=== PATIENT | male | born 1965 | race Caucasian/White ===

== ENCOUNTER → 2018-03-25 14:33 | Outpatient (CLI) | payer OTHER, SELFPAY ==
[2018-03-25 15:02] LABS: Add Manual Diff / Slide Review NO; Basophils Absolute Auto 100 /uL (0-100); Basophils Percent Auto 1.9 % (0-2); Eosinophils Absolute Auto 100 /uL (0-450); Eosinophils Percent Auto 1.2 % (2-4); Hematocrit 44.6 % (41-53); Hemoglobin 15.2 g/dL (13.5-17.5); Lymphocytes Absolute Auto 1800 /uL (1100-4500); Lymphocytes Percent Auto 23.4 % (25-40); Mean Corpuscular HGB Conc 34.1 % (30-36); Mean Corpuscular Hemoglobin 30.4 PG (26-34); Monocytes Absolute Auto 900 /uL (0-900); Neutrophils Absolute Auto 4700 /uL (1500-7000); Neutrophils Percent Auto 61.5 % (50-75); Platelet Count 275 X10^3/uL (150-400); Red Blood Cell Count 5.01 X10^6/uL (4.5-5.9); Red Cell Distribution Width 12.8 % (11.6-14.8); White Blood Cell Count 7.6 X10^3/uL (4.5-11.0)
[2018-03-25 15:37] LABS: Alanine Aminotransferase 61 IU/L (21-72); Albumin 4.5 g/dL (3.5-5.0); Albumin Globulin Ratio 1.6 (1.0-2.8); Alkaline Phosphatase 75 U/L (38-126); Aspartate Aminotransferase 31 IU/L (17-59); BUN Creatinine Ratio 14.4 (6-22); Bilirubin Total 0.7 mg/dL (0.2-1.3); Blood Urea Nitrogen 13 mg/dL (9-20); Calcium 9.5 mg/dL (8.4-10.2); Carbon Dioxide 29 mmol/L (22-32); Chloride 101 mmol/L (98-107); Cholesterol 255 mg/dL (140-199); Estimated Glomerular Filt Rate > 60.0 mL/min (>60); Globulin 2.8 g/dL (1.7-4.1); Glucose 93 mg/dL (70-100); HDL Cholesterol 39 mg/dL (40-60); HEMOLYSIS < 15 (0-50); LDL Cholesterol Calculated 175 mg/dL (<100); Potassium 4.3 mmol/L (3.4-5.1); Sodium 139 mmol/L (137-145); Total Protein 7.3 g/dL (6.3-8.2); Triglycerides 207 mg/dL (35-150)
[2018-03-25 16:33] LABS: Thyroid Stimulating Hormone 1.72 uIU/mL (0.47-4.68)
[2018-03-25 16:39] LABS: Creatinine Urine Random 119.3 mg/dL
[2018-03-25 16:44] LABS: Microalbumi Creatinin Ratio Ur 9.2 ug/mg CR (<30); Microalbumin Urine Random 1.1 mg/dL (0-1.6)
== END ==
PROVIDERS: PCP Family Medicine; Visit Provider Family Medicine
DX: E78.2 Mixed hyperlipidemia (principal); G47.30 Sleep apnea, unspecified; I10 Essential (primary) hypertension; Z13.0 Encounter for screening for diseases of the blood and blood-forming organs and certain disorders involving the immune mechanism; Z13.1 Encounter for screening for diabetes mellitus
CPT/HCPCS: 36415; 80053; 80061; 82043; 82570; 84153; 84443; 85025

== ENCOUNTER → 2018-08-19 10:53 | Outpatient (CLI) | payer OTHER, SELFPAY ==
[2018-08-19 11:55] LABS: Cholesterol 197 mg/dL (140-199); HDL Cholesterol 43 mg/dL (40-60); LDL Cholesterol Calculated 120 mg/dL (<100); Triglycerides 171 mg/dL (35-150)
== END ==
PROVIDERS: PCP Family Medicine; Visit Provider Family Medicine
DX: E78.2 Mixed hyperlipidemia (principal)
CPT/HCPCS: 36415; 80061

== ENCOUNTER → 2018-09-12 09:07 | Outpatient (CLI) | payer OTHER, SELFPAY ==
[2018-09-12 10:30] LABS: BUN Creatinine Ratio 13.3 (6-22); Blood Urea Nitrogen 12 mg/dL (9-20); Calcium 9.2 mg/dL (8.4-10.2); Carbon Dioxide 30 mmol/L (22-32); Chloride 101 mmol/L (98-107); Estimated Glomerular Filt Rate > 60.0 mL/min (>60); Glucose 97 mg/dL (70-100); HEMOLYSIS < 15 (0-50); Potassium 3.7 mmol/L (3.4-5.1); Sodium 140 mmol/L (137-145)
== END ==
PROVIDERS: PCP Family Medicine; Visit Provider Family Medicine
DX: I10 Essential (primary) hypertension (principal)
CPT/HCPCS: 36415; 80048

== ENCOUNTER → 2018-09-13 10:31 | Outpatient (CLI) | payer OTHER, SELFPAY ==
--- NOTE | 2018-09-13 10:33 | DI.RAD.S_ITS ---
PROCEDURE: XR CHEST 2V INDICATIONS: Pleural thickening TECHNIQUE: 2 views of the chest were acquired. COMPARISON: None. FINDINGS: Surgical changes and devices: None Lungs and pleura: Lungs are clear. No pleural effusions or pneumothorax. Mediastinum: Mediastinal contours are normal. Heart size is normal. Bones and chest wall: No suspicious bony abnormalities. Soft tissues appear unremarkable. IMPRESSION: No acute disease Dictated by: Rob Zhong M.D. on 09/13/2018 at 13:57 Approved by: Rob Zhong M.D. on 09/13/2018 at 13:58
== END ==
PROVIDERS: PCP Family Medicine; Visit Provider Family Medicine
DX: R05 Cough (principal); J92.9 Pleural plaque without asbestos
CPT/HCPCS: 71046

== ENCOUNTER 2019-01-17 22:13 | Inpatient (IN) | payer OTHER, SELFPAY ==
[2019-01-17 22:18] VITALS: BP 149/93; PULSE 89; RESP 21; O2SAT 96; BMI 34.2
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
[2019-01-17 22:32] VITALS: BP 150/90; PULSE 98; RESP 24; O2SAT 98
[2019-01-17 22:44] LABS: Add Manual Diff / Slide Review NO; Basophils Absolute Auto 100 /uL (0-100); Basophils Percent Auto 0.8 % (0-2); Eosinophils Absolute Auto 200 /uL (0-450); Eosinophils Percent Auto 1.7 % (2-4); Hematocrit 41.4 % (41-53); Hemoglobin 14.1 g/dL (13.5-17.5); Lymphocytes Absolute Auto 4100 /uL (1100-4500); Lymphocytes Percent Auto 28.3 % (25-40); Mean Corpuscular Hemoglobin 30.4 PG (26-34); Mean Corpuscular Volume 89.4 fL (80-100); Monocytes Absolute Auto 1400 /uL (0-900); Monocytes Percent Auto 9.7 % (3-14); Neutrophils Absolute Auto 8600 /uL (1500-7000); Neutrophils Percent Auto 59.5 % (50-75); Platelet Count 314 X10^3/uL (150-400); Red Blood Cell Count 4.63 X10^6/uL (4.5-5.9); Red Cell Distribution Width 12.8 % (11.6-14.8); White Blood Cell Count 14.5 X10^3/uL (4.5-11.0)
[2019-01-17 22:55] LABS: Prothrombin Time 11.6 SECONDS (10.1-12.7)
[2019-01-17 22:57] LABS: PTT Partial Thromboplastin Tim 29 SECONDS (26.4-36.2)
[2019-01-17 22:59] LABS: Alanine Aminotransferase 37 IU/L (<50); Albumin 4.3 g/dL (3.5-5.0); Albumin Globulin Ratio 1.6 (1.0-2.8); Alkaline Phosphatase 73 U/L (38-126); Aspartate Aminotransferase 31 IU/L (17-59); BUN Creatinine Ratio 13.6 (6-22); Bilirubin Total 0.5 mg/dL (0.2-1.3); Blood Urea Nitrogen 15 mg/dL (9-20); Calcium 9.3 mg/dL (8.4-10.2); Carbon Dioxide 30 mmol/L (22-32); Chloride 101 mmol/L (98-107); Estimated Glomerular Filt Rate > 60.0 mL/min (>60); Globulin 2.7 g/dL (1.7-4.1); Glucose 143 mg/dL (70-100); HEMOLYSIS < 15 (0-50); Lipase 73 U/L (23-300); Potassium 3.2 mmol/L (3.4-5.1); Sodium 139 mmol/L (137-145)
[2019-01-17] MEDS: ONDANSETRON 4 MG/2 ML INJ IV (23:00)
[2019-01-17] MEDS: fentaNYL 100 MCG/2 ML INJ 50 MCG IV (23:01)
[2019-01-17 23:06] VITALS: BP 125/63; PULSE 96; RESP 18; O2SAT 96
[2019-01-17 23:23] VITALS: TEMP 36.7
[2019-01-17] MEDS: MORPHINE 4 MG/ML INJ IV (23:32)
[2019-01-17 23:42] LABS: Bacteria Urine None Seen
[2019-01-17 23:44] LABS: Appearance Urine UA CLEAR; Bilirubin Urine UA NEGATIVE (NEGATIVE); Color Urine UA YELLOW; Glucose Urine UA NEGATIVE (Negative); Ketones Urine UA NEGATIVE (NEGATIVE); Leukocyte Esterase Urine UA NEGATIVE (NEGATIVE); Nitrite Urine UA NEGATIVE (Negative); Occult Blood Urine UA 2+ (Negative); Protein Urine UA NEGATIVE (Negative); Specific Gravity Urine UA <=1.005 (1.000-1.035); Urobilinogen Urine UA 0.2 E.U./dL (0.2); pH Urine UA 6.5 (4.5-8.0)
[2019-01-17 23:45] LABS: Ethanol (ETOH) < 10 mg/dL
[2019-01-17 23:52] LABS: UR Morphine/Opiate cutoff 300 Negative (Negative); Ur Creatinine 50 (Normal); Ur Specific Gravity 1.015 (Normal); Urine Amphetamines Negative (Negative); Urine Barbiturates Negative (Negative); Urine Benzodiazepines Negative (Negative); Urine Cocaine Negative (Negative); Urine MDMA Negative (Negative); Urine Methadone Negative (Negative); Urine Methamphetamines Negative (Negative); Urine Phencyclidine Negative (Negative); Urine Tetrahydrocannabinol Negative (Negative); Urine Tricyclic Antidepressant Negative (Negative); Urine pH 5 (Normal)
[2019-01-17 23:53] LABS: Urine Oxycodone Negative (Negative)
[2019-01-18] VITALS (7 sets, daily range): BP systolic 111–151; BP diastolic 67–83; PULSE 72–99; RESP 16–19; TEMP 36.1–37.3; O2SAT 94–98; BMI 38.7
[2019-01-18 00:21] LABS: Culture Indicated Urine Cult Not Indicated; RBC Urine 1-5/HPF (0-5/HPF); WBC Urine 0-1/HPF (0-5/HPF)
[2019-01-18] MEDS: HYDROMORPHONE 0.5 MG INJ 1 MG IV (00:23)
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
[2019-01-18] MEDS: LACTATED RINGERS 1,000 ML 100 ML IV ×3 (01:41→21:45)
[2019-01-18] MEDS: HYDROMORPHONE 2 MG INJ IV (01:42)
[2019-01-18 04:45] LABS: Add Manual Diff / Slide Review NO; Basophils Absolute Auto 0 /uL (0-100); Basophils Percent Auto 0.3 % (0-2); Eosinophils Absolute Auto 0 /uL (0-450); Hematocrit 42.3 % (41-53); Hemoglobin 14.1 g/dL (13.5-17.5); Lymphocytes Absolute Auto 1200 /uL (1100-4500); Lymphocytes Percent Auto 6.5 % (25-40); Mean Corpuscular HGB Conc 33.2 % (30-36); Mean Corpuscular Volume 90.2 fL (80-100); Monocytes Absolute Auto 1400 /uL (0-900); Monocytes Percent Auto 7.8 % (3-14); Neutrophils Absolute Auto 15200 /uL (1500-7000); Neutrophils Percent Auto 85.4 % (50-75); Platelet Count 324 X10^3/uL (150-400); White Blood Cell Count 17.8 X10^3/uL (4.5-11.0)
[2019-01-18 04:53] LABS: BUN Creatinine Ratio 14.4 (6-22); Blood Urea Nitrogen 13 mg/dL (9-20); Calcium 8.9 mg/dL (8.4-10.2); Carbon Dioxide 27 mmol/L (22-32); Chloride 101 mmol/L (98-107); Estimated Glomerular Filt Rate > 60.0 mL/min (>60); Glucose 199 mg/dL (70-100); HEMOLYSIS < 15 (0-50); Potassium 4.2 mmol/L (3.4-5.1); Sodium 139 mmol/L (137-145)
[2019-01-18] MEDS: ACETAMINOPHEN 325 MG TABLET 650 MG PO ×3 (06:33→17:54)
[2019-01-18] MEDS: KETOROLAC 30 MG/ML VIAL IV ×3 (06:33→21:45)
[2019-01-18] MEDS: ONDANSETRON 4 MG/2 ML INJ IV (07:39)
--- NOTE | 2019-01-18 09:06 | RT ---
PT HAS A HX OF MAGO, AND STATES THAT HE USES A HOME CPAP UNIT EVERY NIGHT. HIS UNIT IS CURRENTLY NOT HERE. HE STATES THAT HE WILL HAVE HIS FAMILY MEMBER BRING THE UNIT IN IF HE STAYS AN ADDITIONAL NIGHT IN THE HOSPITAL. BREATH SOUNDS ARE CLEAR. O2 SAT ON RA NOTED AT 98%. RR = 16. PT IS USING I.S. AT BEDSIDE.
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
[2019-01-18] MEDS: SCOPOLAMINE 1 PATCH TOP (12:31)
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
--- NOTE | 2019-01-18 18:07 | PC.NURSE ---
Addendum entered by Riya Garber R.N. 01/18/19 21:33: Pt has dozed in chair and moves to put self into bed. Staff assist pt and replaced BL calf scd's. Pt has set up own cpap and this is in place. Ice to left thoracic region as well as pillow to splint/support. Encouraged to call for needs. Original Note: Pt up in chair @ beginning of shift. Requests assistance with ambulation in hallway. Denies dizziness when up and ambulatory. Steady gait. Admits to left sided dull pain 07/22. Declines offer for ordered narcotics stating they add to nausea/dizziness. Currently denies nausea. Taking clear liquids well. Slight ankle edema BL. Denies difficulty with urination. Urinal use in bathroom. IV fluids infusing without difficulty to left hand iv site.
[2019-01-19] VITALS (8 sets, daily range): BP systolic 115–143; BP diastolic 54–86; PULSE 59–75; RESP 16–17; TEMP 36.2–36.9; O2SAT 93–98
[2019-01-19] MEDS: ACETAMINOPHEN 325 MG TABLET 650 MG PO ×4 (00:12→18:09)
[2019-01-19] MEDS: KETOROLAC 30 MG/ML VIAL IV ×3 (06:05→21:55)
[2019-01-19] MEDS: LACTATED RINGERS 1,000 ML 100 ML IV ×2 (08:47→20:09)
[2019-01-19] MEDS: DOCUSATE 100 MG CAPSULE PO (08:49)
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
[2019-01-19 13:10] LABS: Add Manual Diff / Slide Review NO; Basophils Absolute Auto 100 /uL (0-100); Eosinophils Absolute Auto 100 /uL (0-450); Eosinophils Percent Auto 1.3 % (2-4); Hematocrit 38.9 % (41-53); Hemoglobin 13.1 g/dL (13.5-17.5); Lymphocytes Absolute Auto 1500 /uL (1100-4500); Lymphocytes Percent Auto 13.5 % (25-40); Mean Corpuscular HGB Conc 33.7 % (30-36); Mean Corpuscular Hemoglobin 30.4 PG (26-34); Mean Corpuscular Volume 90.2 fL (80-100); Monocytes Absolute Auto 1300 /uL (0-900); Monocytes Percent Auto 11.4 % (3-14); Neutrophils Absolute Auto 8000 /uL (1500-7000); Neutrophils Percent Auto 72.8 % (50-75); Platelet Count 256 X10^3/uL (150-400); Red Blood Cell Count 4.32 X10^6/uL (4.5-5.9); Red Cell Distribution Width 13.1 % (11.6-14.8); White Blood Cell Count 10.9 X10^3/uL (4.5-11.0)
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
--- NOTE | 2019-01-19 15:42 | PC.NURSE ---
Pain: SMy stomach hurts worse today then it did yesterday, do I still have the dilaudid if I need it? Reviewed pain med regime, pt didn't want anything for pain now except the toradol and tylenol he has scheduled. He will let us know if he needs it. Also thought hunger maybe part of the cause of his pain and he was wondering about food. MD Hicks is aware of both, see new orders. Pt did eat and he isn't sure if the pain is better or not. Still wanted nothing more for pain. He is gone at the moment for a CT scan of the abd. Spouse called and requesting a note for work so she can stay with him per PT recommendations. MD aware and assisting her in this. Hopefully will feel better. Cont w/poc.
[2019-01-19] MEDS: MORPHINE 4 MG/ML INJ IV ×2 (19:27→23:58)
[2019-01-20 05:54] VITALS: BP 128/78; PULSE 70; RESP 18; TEMP 36.3; O2SAT 98
[2019-01-20] MEDS: KETOROLAC 30 MG/ML VIAL IV (06:09)
[2019-01-20] MEDS: LACTATED RINGERS 1,000 ML 100 ML IV (06:10)
[2019-01-20 07:10] VITALS: PULSE 60; O2SAT 95
[2019-01-20 08:00] VITALS: BP 116/76; PULSE 62; RESP 16; TEMP 36.6; O2SAT 96
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
[2019-01-20] MEDS: ACETAMINOPHEN 325 MG TABLET 650 MG PO (12:34)
--- NOTE | 2019-01-20 13:36 | PC.NURSE ---
Day shift: Pt left unit via WC with ZAIDA Ríos to private car driven by Pt's spouse. paperwork signed and all questions answered. Pt has MD scripts as well as all personal belongings. Pt in good spirits upon discharge.
--- NOTE | 2019-01-20 14:03 | CM.DPC ---
DCP Discharge Home Per Surgeon, pt medically stable to d/c home today with no identified barriers to discharge. Per RN, pt to d/c home via spouse and no concerns at this time. Plan: Patient to d/c home today via spouse POV and no SW needs at this time. OMAR Santoyo
== END 2019-01-20 13:37 | disposition home or self-care (01) | DRG 645 ==
LOC: ED 23:57 → AC 01-18 04:20
PROVIDERS: Specialist; Admitting Provider Surgery; Emergency Provider Emergency Medicine; Family Provider Family Medicine; PCP Family Medicine; Visit Provider Surgery
DX: S37.818A Other injury of adrenal gland, initial encounter (principal); E66.9 Obesity, unspecified; Z68.38 Body mass index [BMI] 38.0-38.9, adult; E78.5 Hyperlipidemia, unspecified; I10 Essential (primary) hypertension; G47.33 Obstructive sleep apnea (adult) (pediatric); V43.52XA Car driver injured in collision with other type car in traffic accident, initial encounter; Y92.410 Unspecified street and highway as the place of occurrence of the external cause
CPT/HCPCS: 36415; 70450; 71045; 71260; 72125; 72170; 74177; 80048; 80053; 80305; 80320; 81001; 82962; 83690; 85025; 85610; 85730; 86850; 86900; 86901; 94762; 96374; 96375; 97161; 97530; 99222; 99231; 99232; 99238; 99283; 99284; J1170; J1885; J2270; J2405; J3010; Q9967

== ENCOUNTER → 2019-01-23 08:17 | Outpatient (CLI) | payer OTHER, SELFPAY ==
[2019-01-18 01:13] VITALS: BMI 38.7
[2019-01-23 09:28] LABS: Add Manual Diff / Slide Review NO; Basophils Absolute Auto 100 /uL (0-100); Basophils Percent Auto 0.9 % (0-2); Eosinophils Absolute Auto 200 /uL (0-450); Hematocrit 40.3 % (41-53); Lymphocytes Absolute Auto 1800 /uL (1100-4500); Lymphocytes Percent Auto 25.6 % (25-40); Mean Corpuscular HGB Conc 34.8 % (30-36); Mean Corpuscular Hemoglobin 30.8 PG (26-34); Mean Corpuscular Volume 88.7 fL (80-100); Monocytes Absolute Auto 700 /uL (0-900); Monocytes Percent Auto 9.8 % (3-14); Neutrophils Absolute Auto 4200 /uL (1500-7000); Neutrophils Percent Auto 60.7 % (50-75); Platelet Count 345 X10^3/uL (150-400); Red Blood Cell Count 4.54 X10^6/uL (4.5-5.9); Red Cell Distribution Width 12.6 % (11.6-14.8); White Blood Cell Count 6.9 X10^3/uL (4.5-11.0)
[2019-01-23 09:53] LABS: BUN Creatinine Ratio 15.6 (6-22); Blood Urea Nitrogen 14 mg/dL (9-20); Calcium 9.4 mg/dL (8.4-10.2); Carbon Dioxide 29 mmol/L (22-32); Chloride 102 mmol/L (98-107); Estimated Glomerular Filt Rate > 60.0 mL/min (>60); Glucose 113 mg/dL (70-100); HEMOLYSIS < 15 (0-50); Potassium 4.2 mmol/L (3.4-5.1); Sodium 140 mmol/L (137-145)
== END ==
PROVIDERS: PCP Family Medicine; Visit Provider Family Medicine
DX: E27.49 Other adrenocortical insufficiency (principal); I10 Essential (primary) hypertension; R42 Dizziness and giddiness; V89.2XXA Person injured in unspecified motor-vehicle accident, traffic, initial encounter
CPT/HCPCS: 36415; 80048; 85025

== ENCOUNTER → 2019-01-23 08:32 | Outpatient (CLI) | payer OTHER, SELFPAY ==
[2019-01-18 01:13] VITALS: BMI 38.7
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
== END ==
PROVIDERS: PCP Family Medicine; Visit Provider Family Medicine
DX: E27.49 Other adrenocortical insufficiency (principal); K76.0 Fatty (change of) liver, not elsewhere classified; Z90.49 Acquired absence of other specified parts of digestive tract
CPT/HCPCS: 74150

== ENCOUNTER → 2019-01-29 07:50 | Outpatient (CLI) | payer OTHER, SELFPAY ==
[2019-01-18 01:13] VITALS: BMI 38.7
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
== END ==
PROVIDERS: PCP Family Medicine; Visit Provider Family Medicine
DX: R42 Dizziness and giddiness (principal); E27.49 Other adrenocortical insufficiency; I10 Essential (primary) hypertension
CPT/HCPCS: 36415; 70553; 85025

== ENCOUNTER → 2019-01-29 08:44 | Outpatient (CLI) | payer OTHER, SELFPAY ==
[2019-01-18 01:13] VITALS: BMI 38.7
[2019-01-29 09:26] LABS: Add Manual Diff / Slide Review NO; Basophils Absolute Auto 0 /uL (0-100); Basophils Percent Auto 0.3 % (0-2); Eosinophils Absolute Auto 0 /uL (0-450); Eosinophils Percent Auto 0.1 % (2-4); Hematocrit 42.9 % (41-53); Hemoglobin 14.6 g/dL (13.5-17.5); Lymphocytes Absolute Auto 2200 /uL (1100-4500); Mean Corpuscular HGB Conc 34.1 % (30-36); Mean Corpuscular Hemoglobin 30.6 PG (26-34); Mean Corpuscular Volume 89.8 fL (80-100); Monocytes Absolute Auto 1200 /uL (0-900); Neutrophils Absolute Auto 11300 /uL (1500-7000); Neutrophils Percent Auto 76.6 % (50-75); Platelet Count 402 X10^3/uL (150-400); Red Blood Cell Count 4.78 X10^6/uL (4.5-5.9); Red Cell Distribution Width 13.2 % (11.6-14.8); White Blood Cell Count 14.7 X10^3/uL (4.5-11.0)
== END ==
PROVIDERS: PCP Family Medicine; Visit Provider Family Medicine
DX: E27.49 Other adrenocortical insufficiency (principal); I10 Essential (primary) hypertension; V89.2XXA Person injured in unspecified motor-vehicle accident, traffic, initial encounter
CPT/HCPCS: 36415; 85025

== ENCOUNTER → 2019-02-14 15:51 | Outpatient (CLI) | payer OTHER, SELFPAY ==
[2019-01-18 01:13] VITALS: BMI 38.7
[2019-02-14 16:07] LABS: Add Manual Diff / Slide Review NO; Basophils Absolute Auto 100 /uL (0-100); Basophils Percent Auto 1.3 % (0-2); Eosinophils Absolute Auto 200 /uL (0-450); Eosinophils Percent Auto 2.4 % (2-4); Hematocrit 40.5 % (41-53); Hemoglobin 14.2 g/dL (13.5-17.5); Lymphocytes Absolute Auto 2200 /uL (1100-4500); Lymphocytes Percent Auto 25.1 % (25-40); Mean Corpuscular HGB Conc 35.1 % (30-36); Mean Corpuscular Hemoglobin 31.2 PG (26-34); Monocytes Absolute Auto 1200 /uL (0-900); Monocytes Percent Auto 13.2 % (3-14); Neutrophils Absolute Auto 5100 /uL (1500-7000); Platelet Count 283 X10^3/uL (150-400); Red Blood Cell Count 4.56 X10^6/uL (4.5-5.9); White Blood Cell Count 8.8 X10^3/uL (4.5-11.0)
== END ==
PROVIDERS: PCP Family Medicine; Visit Provider Family Medicine
DX: E27.49 Other adrenocortical insufficiency (principal)
CPT/HCPCS: 36415; 85025

== ENCOUNTER → 2019-02-20 09:20 | Outpatient (CLI) | payer OTHER, SELFPAY ==
[2019-01-18 01:13] VITALS: BMI 38.7
--- NOTE | 2019-02-20 09:24 | DI.CT.S_ITS ---
PROCEDURE: CT ABDOMEN WO CON INDICATIONS: Adrenal hematoma TECHNIQUE: After the administration of oral contrast, 5 mm thick sections acquired from the diaphragms to the iliac crests. 5 mm coronal and sagittal reformats were then performed. For radiation dose reduction, the following was used: automated exposure control, adjustment of mA and/or kV according to patient size. COMPARISON: [facility], CT, CT ABDOMEN PELVIS W CON, 01/19/2019, 15:19. [facility], CT, CT ABDOMEN WO CON, 01/23/2019, 9:03. FINDINGS: Image quality: Excellent. Lung bases: Lung bases are clear. Heart size is normal. Solid organs: Medial and lateral limb left adrenal nodules have both decreased in size. The medial nodule measures approximately 1.2 cm transversely, previously 1.9 cm. The lateral nodule measures about 1.4 cm in greatest diameter, previously at least 2.1 cm. No significant surrounding fat stranding. Liver is normal in size. The ovoid hypodensity centrally in the right liver dome. Gallbladder is surgically absent. Pancreas is normal in contours. Spleen is normal in size. Both kidneys are normal in size, without hydronephrosis or nephrolithiasis. Peritoneum and bowel: Bowel loops demonstrate normal wall thickness and caliber. Normal appendix. No free fluid or air. Nodes and vessels: No retroperitoneal or mesenteric adenopathy by size criteria. Aorta and inferior vena cava are normal in size. Bones: No suspicious bony lesions. No vertebral body compression fractures. Miscellaneous: No ventral hernias. IMPRESSION: 1. Decreased size of 2 left adrenal nodules and resolution of nilda-nodular inflammation. 2. Cholecystectomy. Dictated by: Rosalee Son M.D. on 02/20/2019 at 9:46 Approved by: Rosalee Son M.D. on 02/20/2019 at 9:55
== END ==
PROVIDERS: PCP Family Medicine; Visit Provider Family Medicine
DX: E27.8 Other specified disorders of adrenal gland (principal); E27.49 Other adrenocortical insufficiency; Z90.49 Acquired absence of other specified parts of digestive tract
CPT/HCPCS: 74150

== ENCOUNTER → 2019-03-21 07:57 | Outpatient (CLI) | payer OTHER, SELFPAY ==
[2019-01-18 01:13] VITALS: BMI 38.7
--- NOTE | 2019-03-21 08:28 | DI.CT.S_ITS ---
PROCEDURE: CT ABDOMEN WO CON INDICATIONS: Adrenal hemorrhage TECHNIQUE: After the administration of oral contrast, 5 mm thick sections acquired from the diaphragms to the iliac crests. 5 mm coronal and sagittal reformats were then performed. For radiation dose reduction, the following was used: automated exposure control, adjustment of mA and/or kV according to patient size. COMPARISON: [facility], CT, CT HEAD/BRAIN WO CON, 01/17/2019, 22:32. [facility], CT, CT CHEST ABD PEL W CON, 01/17/2019, 22:32. [facility], CT, CT ABDOMEN WO CON, 02/20/2019, 9:24. FINDINGS: Image quality: Excellent. Lung bases: Lung bases are clear. Heart size is normal. Solid organs: Liver is normal in size. Gallbladder is surgically absent.. Pancreas is normal in contours. Spleen is normal in size. Resolution of left adrenal hemorrhage. Tiny residual left adrenal nodule. Both kidneys are normal in size, without hydronephrosis or nephrolithiasis. Peritoneum and bowel: Bowel loops demonstrate normal wall thickness and caliber. No free fluid or air. Nodes and vessels: No retroperitoneal or mesenteric adenopathy by size criteria. Aorta and inferior vena cava are normal in size. Bones: No suspicious bony lesions. No vertebral body compression fractures. Miscellaneous: No ventral hernias. IMPRESSION: Resolution of left adrenal hematoma. Tiny left adrenal nodule. No further followup suggested. Dictated by: Michael Tirado M.D. on 03/21/2019 at 10:20 Approved by: Michael Tirado M.D. on 03/21/2019 at 10:33
== END ==
PROVIDERS: PCP Family Medicine; Referring Provider Family Medicine; Visit Provider Family Medicine
DX: E27.49 Other adrenocortical insufficiency (principal); Z90.49 Acquired absence of other specified parts of digestive tract
CPT/HCPCS: 74150

== ENCOUNTER → 2019-07-02 17:01 | Outpatient (CLI) | payer OTHER, SELFPAY ==
[2019-06-11 11:04] VITALS: BMI 38.7
--- NOTE | 2019-07-02 17:05 | DI.MRI.S_ITS ---
PROCEDURE: MR LUMBAR SPINE WO CON INDICATIONS: Back pain TECHNIQUE: Noncontrast sagittal T1 spin echo and T2 fast echo, sagittal STIR, axial T1 and T2 fast spin echo through the lumbar spine. In cases with scoliosis, additional coronal T2 fast spin echo may be performed. COMPARISON: None. FINDINGS: Image quality: Excellent. Alignment and Curvature: There is normal bony alignment. Bone Marrow: Marrow is of normal overall signal. No acute vertebral body compression fractures. Fatty metaplasia is seen of the sacrum. Spinal Cord: Conus medullaris terminates at the T12-L1 level. Visualized cord demonstrates normal signal and size. Paraspinous Soft Tissues: No paravertebral masses. T12-L1: Normal appearance. L1-L2: Normal appearance. L2-L3: Normal appearance. L3-L4: The disc height and disk signal are well-preserved. Mild disc bulge is seen, with a mild central disc protrusion. No neural foraminal narrowing is seen. Mild central canal narrowing is seen. L4-L5: The disc height and disk signal are well-preserved. Mild to moderate disc bulge is seen, with a mild central disc protrusion. Mild to moderate facet hypertrophy is seen. There is moderate bilateral neural foraminal narrowing seen, left worse than right. Moderate central canal narrowing is seen. L5-S1: The disc height and disk signal are well-preserved. Mild generalized disc bulge is seen. Mild facet joint hypertrophy is seen. No significant neural foraminal or central canal narrowing can be seen. IMPRESSION: Lower lumbar spine degenerative changes are seen, which are most prominent at the L4-L5 level, where there is moderate bilateral neural foraminal narrowing seen, left worse than right. Dictated by: Avinash Wadsworth M.D. on 07/02/2019 at 16:54 Approved by: Avinash Wadsworth M.D. on 07/02/2019 at 16:57
== END ==
PROVIDERS: PCP Family Medicine; Referring Provider Family Medicine; Visit Provider Family Medicine
DX: S39.92XA Unspecified injury of lower back, initial encounter (principal); M54.5 Low back pain; M47.816 Spondylosis without myelopathy or radiculopathy, lumbar region; M47.817 Spondylosis without myelopathy or radiculopathy, lumbosacral region; M48.061 Spinal stenosis, lumbar region without neurogenic claudication; X58.XXXA Exposure to other specified factors, initial encounter
CPT/HCPCS: 72148

== ENCOUNTER → 2019-11-06 09:39 | Outpatient (CLI) | payer OTHER, SELFPAY ==
[2019-06-11 11:04] VITALS: BMI 38.7
[2019-11-06 11:06] LABS: Add Manual Diff / Slide Review NO; Basophils Absolute Auto 100 /uL (0-100); Basophils Percent Auto 0.8 % (0-2); Eosinophils Absolute Auto 200 /uL (0-450); Eosinophils Percent Auto 2.2 % (2-4); Hematocrit 43.6 % (41-53); Lymphocytes Absolute Auto 2100 /uL (1100-4500); Lymphocytes Percent Auto 29.2 % (25-40); Mean Corpuscular HGB Conc 34.3 % (30-36); Mean Corpuscular Hemoglobin 31.1 PG (26-34); Mean Corpuscular Volume 90.5 fL (80-100); Monocytes Absolute Auto 800 /uL (0-900); Neutrophils Absolute Auto 4100 /uL (1500-7000); Neutrophils Percent Auto 56.8 % (50-75); Platelet Count 281 X10^3/uL (150-400); Red Blood Cell Count 4.82 X10^6/uL (4.5-5.9); Red Cell Distribution Width 12.8 % (11.6-14.8); White Blood Cell Count 7.2 X10^3/uL (4.5-11.0)
[2019-11-06 11:43] LABS: HEMOLYSIS < 15 (0-50)
[2019-11-06 11:49] LABS: Alanine Aminotransferase 39 IU/L (<50); Albumin 4.3 g/dL (3.5-5.0); Albumin Globulin Ratio 1.6 (1.0-2.8); Alkaline Phosphatase 81 U/L (38-126); Aspartate Aminotransferase 29 IU/L (17-59); BUN Creatinine Ratio 15.9 (6-22); Bilirubin Total 0.6 mg/dL (0.2-1.3); Blood Urea Nitrogen 14 mg/dL (9-20); Calcium 9.4 mg/dL (8.4-10.2); Carbon Dioxide 31 mmol/L (22-32); Chloride 102 mmol/L (98-107); Cholesterol 167 mg/dL (140-199); Estimated Glomerular Filt Rate > 60.0 mL/min (>60); Globulin 2.7 g/dL (1.7-4.1); Glucose 90 mg/dL (70-100); HDL Cholesterol 42 mg/dL (40-60); LDL Cholesterol Calculated 99 mg/dL (<100); Potassium 4.4 mmol/L (3.4-5.1); Sodium 142 mmol/L (137-145); Triglycerides 129 mg/dL (35-150)
== END ==
PROVIDERS: PCP Family Medicine; Referring Provider Family Medicine; Visit Provider Family Medicine
DX: E78.2 Mixed hyperlipidemia (principal)
CPT/HCPCS: 36415; 80053; 80061; 84153; 85025

== ENCOUNTER → 2019-11-11 15:04 | Outpatient (CLI) | payer OTHER, SELFPAY ==
[2019-06-11 11:04] VITALS: BMI 38.7
--- NOTE | 2019-11-11 15:05 | DI.RAD.S_ITS ---
PROCEDURE: XR SHOULDER LT MIN 2V INDICATIONS: pain TECHNIQUE: 3 views of the shoulder were acquired. COMPARISON: [facility], , SHOULDER MINIMUM 2VIEW RIGHT, 06/23/2016, 15:03. FINDINGS: Bones: No fractures or dislocations. No suspicious bony lesions. Visualized ribs appear intact. Mild joint narrowing with periarticular osteophyte formation. Soft tissues: No suspicious soft tissue calcifications. IMPRESSION: Mild acromioclavicular and glenohumeral joint degeneration. Dictated by: Alonso Tomas [facility] Interpreted: Julio Burks MD on 11/11/2019 at 15:20 Approved by: Julio Burks M.D. on 11/11/2019 at 17:18
== END ==
PROVIDERS: PCP Family Medicine; Referring Provider Family Medicine; Visit Provider Family Medicine
DX: M25.512 Pain in left shoulder (principal); M19.012 Primary osteoarthritis, left shoulder
CPT/HCPCS: 73030

== ENCOUNTER → 2019-12-07 10:11 | Outpatient (CLI) | payer OTHER, SELFPAY ==
[2019-06-11 11:04] VITALS: BMI 38.7
--- NOTE | 2019-12-07 10:12 | DI.MRI.S_ITS ---
PROCEDURE: MR SHOULDER LT WO CON INDICATIONS: pain in left shoulder TECHNIQUE: Noncontrast oblique coronal T2 fast spin echo with fat saturation, oblique sagittal T1 spin echo with fat saturation, axial T1 spin echo and T2 fast spin echo with fat saturation through the shoulder. Examination limited by technical factors. COMPARISON: [facility], CR, XR SHOULDER LT MIN 2V, 11/11/2019, 14:54. FINDINGS: Image quality: Excellent. Rotator cuff: There is a small, high-grade partial-thickness articular surface tear of the anterior supraspinatus tendon at the humeral insertion site. Low-grade partial-thickness intrasubstance tearing of the mid and posterior supraspinatus tendon at the humeral insertion site. Subscapularis, teres minor, and infraspinatus tendons are intact. No rotator cuff atrophy. Bones and bursae: No bone marrow contusions or fractures. Mild acromioclavicular joint degeneration. The acromion demonstrates conventional anatomy, without an os acromiale. Small amount of subacromial-subdeltoid or subcoracoid bursal fluid is present. Capsule and soft tissues: Diffuse degenerative tearing of the glenoid labrum. The long head of the biceps tendon demonstrates normal location and morphology. The rotator interval appears normal, without fibrosis. The coracohumeral ligament is normal in thickness. IMPRESSION: 1. Small high-grade articular surface tear of the anterior supraspinatus tendon. Low-grade partial-thickness tearing of the remainder of the supraspinatus tendon. 2. Acromioclavicular joint osteoarthritis. 3. Subacromial bursitis. 4. Degenerative glenoid labral tearing. Dictated by: Sarina Clemens M.D. on 12/08/2019 at 9:30 Approved by: Sarina Clemens M.D. on 12/08/2019 at 9:34
== END ==
PROVIDERS: PCP Family Medicine; Referring Provider Family Medicine; Visit Provider Family Medicine
DX: M25.512 Pain in left shoulder (principal); M75.112 Incomplete rotator cuff tear or rupture of left shoulder, not specified as traumatic; M19.012 Primary osteoarthritis, left shoulder; M75.52 Bursitis of left shoulder; S43.492A Other sprain of left shoulder joint, initial encounter
CPT/HCPCS: 73221

== ENCOUNTER → 2021-01-25 11:47 | Outpatient (CLI) | payer OTHER, SELFPAY ==
[2019-06-11 11:04] VITALS: BMI 38.7
[2021-01-25 12:21] LABS: Add Manual Diff / Slide Review NO; Basophils Absolute Auto 100 /uL (0-100); Basophils Percent Auto 0.9 % (0-2); Eosinophils Absolute Auto 200 /uL (0-450); Eosinophils Percent Auto 2.4 % (2-4); Hematocrit 42.9 % (41-53); Hemoglobin 14.6 g/dL (13.5-17.5); Lymphocytes Absolute Auto 2100 /uL (1100-4500); Lymphocytes Percent Auto 26.7 % (25-40); Mean Corpuscular Hemoglobin 30.8 PG (26-34); Mean Corpuscular Volume 90.8 fL (80-100); Monocytes Absolute Auto 900 /uL (0-900); Monocytes Percent Auto 11.7 % (3-14); Neutrophils Absolute Auto 4600 /uL (1500-7000); Neutrophils Percent Auto 58.3 % (50-75); Platelet Count 275 X10^3/uL (150-400); Red Blood Cell Count 4.73 X10^6/uL (4.5-5.9); Red Cell Distribution Width 13.5 % (11.6-14.8)
[2021-01-25 12:34] LABS: Alanine Aminotransferase 39 IU/L (<50); Albumin 4.4 g/dL (3.5-5.0); Albumin Globulin Ratio 1.8 (1.0-2.8); Alkaline Phosphatase 74 U/L (38-126); Aspartate Aminotransferase 27 IU/L (17-59); BUN Creatinine Ratio 13.5 (6-22); Bilirubin Total 0.7 mg/dL (0.2-1.3); Blood Urea Nitrogen 12 mg/dL (9-20); Calcium 9.5 mg/dL (8.4-10.2); Carbon Dioxide 30 mmol/L (22-32); Chloride 105 mmol/L (98-107); Cholesterol 180 mg/dL (140-199); Estimated Glomerular Filt Rate > 60.0 mL/min (>60); Globulin 2.5 g/dL (1.7-4.1); Glucose 100 mg/dL (70-100); HDL Cholesterol 43 mg/dL (40-60); HEMOLYSIS < 15 (0-50); LDL Cholesterol Calculated 109 mg/dL (<100); Potassium 4.3 mmol/L (3.4-5.1); Sodium 141 mmol/L (137-145); Total Protein 6.9 g/dL (6.3-8.2); Triglycerides 142 mg/dL (35-150)
[2021-01-25 15:27] LABS: Creatinine Urine Random 217.6 mg/dL
[2021-01-25 15:32] LABS: Microalbumi Creatinin Ratio Ur 10.5 ug/mg CR (<30); Microalbumin Urine Random 2.3 mg/dL (0-1.6)
== END ==
PROVIDERS: PCP Family Medicine; Referring Provider Family Medicine; Visit Provider Family Medicine
DX: E78.5 Hyperlipidemia, unspecified (principal); I10 Essential (primary) hypertension; R42 Dizziness and giddiness; Z20.822 Contact with and (suspected) exposure to COVID-19
CPT/HCPCS: 36415; 80053; 80061; 82043; 82570; 85025; 86769

== ENCOUNTER → 2021-10-25 11:03 | Outpatient (CLI) | payer OTHER, SELFPAY ==
[2021-10-18 11:06] VITALS: BMI 38.7
[2021-10-25 12:35] LABS: Alanine Aminotransferase 37 IU/L (<50); Albumin 4.2 g/dL (3.5-5.0); Albumin Globulin Ratio 1.5 (1.0-2.8); Alkaline Phosphatase 80 U/L (38-126); Aspartate Aminotransferase 25 IU/L (17-59); BUN Creatinine Ratio 14.3 (6-22); Bilirubin Total 0.7 mg/dL (0.2-1.3); Blood Urea Nitrogen 13 mg/dL (9-20); Calcium 9.1 mg/dL (8.4-10.2); Carbon Dioxide 29 mmol/L (22-32); Chloride 102 mmol/L (98-107); Cholesterol 176 mg/dL (140-199); Estimated Glomerular Filt Rate > 60 mL/min (>60); Globulin 2.8 g/dL (1.7-4.1); Glucose 96 mg/dL (70-100); HDL Cholesterol 39 mg/dL (40-60); HEMOLYSIS < 15 (0-50); LDL Cholesterol Calculated 115 mg/dL (<100); Potassium 4.4 mmol/L (3.4-5.1); Sodium 139 mmol/L (137-145); Triglycerides 112 mg/dL (35-150)
[2021-10-25 12:41] LABS: Creatinine Urine Random 256.5 mg/dL
[2021-10-25 12:44] LABS: Microalbumi Creatinin Ratio Ur 10.5 ug/mg CR (<30); Microalbumin Urine Random 2.7 mg/dL (0-1.6)
[2021-10-25 12:58] LABS: Prostate Specific Antigen Scrn 3.15 ng/mL (0.1-4.0)
== END ==
PROVIDERS: PCP Family Medicine; Referring Provider Family Medicine; Visit Provider Family Medicine
DX: E78.5 Hyperlipidemia, unspecified (principal); I10 Essential (primary) hypertension; Z12.5 Encounter for screening for malignant neoplasm of prostate
CPT/HCPCS: 36415; 80053; 80061; 82043; 82570; G0103

== ENCOUNTER → 2022-09-11 16:39 | Outpatient (CLI) | payer OTHER, SELFPAY ==
[2021-10-18 11:06] VITALS: BMI 38.7
--- NOTE | 2022-09-11 16:41 | DI.MRI.S_ITS ---
PROCEDURE: MR BRAIN (IAC) WWO CON INDICATIONS: eval vertigo TECHNIQUE: Noncontrast sagittal T1 spin echo, axial FLAIR, axial gradient echo, axial diffusion and ADC through the brain. Axial thin-slice 3D CISS, coronal TruFISP, axial T1 spin echo with fat saturation through the internal auditory canals. After the administration of contrast, thin slice axial and coronal T1 spin echo with fat saturation through the internal auditory canals, and axial and coronal and sagittal T1 spin echo with fat saturation through the brain. COMPARISON: [facility], MR, MR BRAIN (IAC) WWO CON, 01/29/2019, 8:03. FINDINGS: Image quality: Excellent. Cerebellopontine angles: No cerebellopontine angle masses. Inner ear structures appear normally formed. No suspicious enhancement in the internal auditory canal or along the course of the 7th cranial nerve. CSF spaces: Ventricles are normal in size and shape. No extra-axial fluid collections. Basal cisterns are patent. Brain: No intracranial bleeds or mass effects. Villar-white matter interface is intact. No abnormal intracranial enhancement. Diffusion weighted images demonstrate no acute ischemic insults. Brainstem appears normal. Normal intravascular flow voids are present. Skull and face: Calvarial marrow signal is normal. Orbits appear normal. Sinuses: Sinuses and mastoids are clear. IMPRESSION: 1. Negative evaluation of the internal auditory canals. 2. No acute process. No recent infarct. Dictated by: Sarina Clemens M.D. on 09/12/2022 at 11:37 Approved by: Sarina Clemens M.D. on 09/12/2022 at 11:39
== END ==
PROVIDERS: PCP Family Medicine; Referring Provider Registered Nurse Diabetes Educator; Visit Provider Registered Nurse Diabetes Educator
DX: R42 Dizziness and giddiness (principal)
CPT/HCPCS: 70553; A9579

== ENCOUNTER → 2022-09-21 11:25 | Outpatient (CLI) | payer OTHER, SELFPAY ==
[2021-10-18 11:06] VITALS: BMI 38.7
[2022-09-21 13:07] LABS: Add Manual Diff / Slide Review NO; Basophils Absolute Auto 100 /uL (0-100); Basophils Percent Auto 1.1 % (0-2); Eosinophils Absolute Auto 200 /uL (0-450); Eosinophils Percent Auto 3.5 % (2-4); Hematocrit 40.8 % (41-53); Hemoglobin 13.9 g/dL (13.5-17.5); Lymphocytes Absolute Auto 2100 /uL (1100-4500); Lymphocytes Percent Auto 30.3 % (25-40); Mean Corpuscular HGB Conc 34.2 % (30-36); Mean Corpuscular Hemoglobin 30.9 PG (26-34); Mean Corpuscular Volume 90.4 fL (80-100); Monocytes Absolute Auto 800 /uL (0-900); Monocytes Percent Auto 11.3 % (3-14); Neutrophils Absolute Auto 3700 /uL (1500-7000); Neutrophils Percent Auto 53.8 % (50-75); Platelet Count 291 X10^3/uL (150-400); Red Blood Cell Count 4.52 X10^6/uL (4.5-5.9); Red Cell Distribution Width 13.1 % (11.6-14.8); White Blood Cell Count 6.9 X10^3/uL (4.5-11.0)
[2022-09-21 13:50] LABS: Alanine Aminotransferase 38 IU/L (<50); Albumin Globulin Ratio 1.6 (1.0-2.8); Alkaline Phosphatase 81 U/L (38-126); Aspartate Aminotransferase 32 IU/L (17-59); BUN Creatinine Ratio 13.1 (6-22); Bilirubin Total 0.5 mg/dL (0.2-1.3); Blood Urea Nitrogen 11 mg/dL (9-20); Calcium 8.8 mg/dL (8.4-10.2); Carbon Dioxide 26 mmol/L (22-32); Chloride 103 mmol/L (98-107); Cholesterol 179 mg/dL (140-199); Estimated Glomerular Filt Rate > 60 mL/min (>60); Globulin 2.5 g/dL (1.7-4.1); Glucose 96 mg/dL (70-100); HDL Cholesterol 43 mg/dL (40-60); HEMOLYSIS < 15 (0-50); LDL Cholesterol Calculated 115 mg/dL (<100); Potassium 4.2 mmol/L (3.4-5.1); Sodium 137 mmol/L (137-145); Total Protein 6.5 g/dL (6.3-8.2); Triglycerides 107 mg/dL (35-150)
[2022-09-21 14:10] LABS: Prostate Specific Antigen Scrn 2.27 ng/mL (0.1-4.0)
== END ==
PROVIDERS: PCP Family Medicine; Referring Provider Family Medicine; Visit Provider Family Medicine
DX: E78.2 Mixed hyperlipidemia (principal); E78.5 Hyperlipidemia, unspecified; I10 Essential (primary) hypertension; Z12.5 Encounter for screening for malignant neoplasm of prostate
CPT/HCPCS: 36415; 80053; 80061; 85025; G0103

== ENCOUNTER → 2022-10-05 09:49 | Outpatient (CLI) | payer OTHER, SELFPAY ==
[2021-10-18 11:06] VITALS: BMI 38.7
== END ==
PROVIDERS: PCP Family Medicine; Referring Provider Family Medicine; Visit Provider Family Medicine
DX: R00.2 Palpitations (principal); R42 Dizziness and giddiness
CPT/HCPCS: 93246

== ENCOUNTER → 2023-07-31 09:56 | Outpatient (CLI) | payer OTHER, SELFPAY ==
[2021-10-18 11:06] VITALS: BMI 38.7
[2023-07-31 10:49] LABS: Add Manual Diff / Slide Review NO; Basophils Absolute Auto 100 /uL (0-100); Basophils Percent Auto 0.9 % (0-2); Eosinophils Absolute Auto 200 /uL (0-450); Hematocrit 43.2 % (41-53); Hemoglobin 14.8 g/dL (13.5-17.5); Lymphocytes Absolute Auto 2300 /uL (1100-4500); Lymphocytes Percent Auto 30.9 % (25-40); Mean Corpuscular HGB Conc 34.3 % (30-36); Mean Corpuscular Hemoglobin 31.1 PG (26-34); Mean Corpuscular Volume 90.9 fL (80-100); Monocytes Absolute Auto 900 /uL (0-900); Neutrophils Absolute Auto 3800 /uL (1500-7000); Neutrophils Percent Auto 52.2 % (50-75); Platelet Count 259 X10^3/uL (150-400); Red Blood Cell Count 4.75 X10^6/uL (4.5-5.9); Red Cell Distribution Width 13.2 % (11.6-14.8); White Blood Cell Count 7.3 X10^3/uL (4.5-11.0)
[2023-07-31 10:55] LABS: Creatinine Urine Random 227.84 mg/dL
[2023-07-31 10:57] LABS: Hemoglobin A1C% w Est Avg Glu 5.5 % (4.0-6.0)
[2023-07-31 10:59] LABS: Microalbumin Urine Random 2.3 mg/dL (0-1.6)
[2023-07-31 11:10] LABS: Alanine Aminotransferase 32 IU/L (<50); Albumin 4.2 g/dL (3.5-5.0); Albumin Globulin Ratio 1.5 (1.0-2.8); Alkaline Phosphatase 85 U/L (38-126); Aspartate Aminotransferase 29 IU/L (17-59); BUN Creatinine Ratio 15.9 (6-22); Bilirubin Total 0.7 mg/dL (0.2-1.3); Blood Urea Nitrogen 13 mg/dL (9-20); Calcium 8.8 mg/dL (8.4-10.2); Carbon Dioxide 26 mmol/L (22-32); Chloride 107 mmol/L (98-107); Cholesterol 223 mg/dL (140-199); Estimated Glomerular Filt Rate > 60 mL/min (>60); Globulin 2.8 g/dL (1.7-4.1); Glucose 108 mg/dL (70-100); HDL Cholesterol 49 mg/dL (40-60); HEMOLYSIS < 15 (0-50); LDL Cholesterol Calculated 152 mg/dL (<100); Potassium 4.2 mmol/L (3.4-5.1); Sodium 137 mmol/L (137-145); Triglycerides 110 mg/dL (35-150)
[2023-07-31 11:41] LABS: Prostate Specific Antigen Scrn 2.35 ng/mL (0.1-4.0)
[2023-08-01 03:10] LABS: Apolipoprotein B 114 mg/dL (<90)
== END ==
LOC: LAB 09:58
PROVIDERS: PCP Family Medicine; Referring Provider Family Medicine; Visit Provider Family Medicine
DX: Z12.5 Encounter for screening for malignant neoplasm of prostate (principal); I10 Essential (primary) hypertension; E78.5 Hyperlipidemia, unspecified; R55 Syncope and collapse; G47.30 Sleep apnea, unspecified; E66.9 Obesity, unspecified
CPT/HCPCS: 36415; 80053; 80061; 82043; 82172; 82570; 83036; 84443; 85025; G0103

== ENCOUNTER → 2024-05-21 12:17 | Outpatient (CLI) | payer OTHER, SELFPAY ==
[2021-10-18 11:06] VITALS: BMI 38.7
[2024-05-21 12:45] LABS: Add Manual Diff / Slide Review NO; Basophils Absolute Auto 0 /uL (0-100); Basophils Percent Auto 0.4 % (0-2); Eosinophils Absolute Auto 100 /uL (0-450); Eosinophils Percent Auto 1.8 % (2-4); Hemoglobin 14.8 g/dL (13.5-17.5); Lymphocytes Absolute Auto 2100 /uL (1100-4500); Lymphocytes Percent Auto 27.1 % (25-40); Mean Corpuscular HGB Conc 34.4 % (30-36); Mean Corpuscular Volume 90.1 fL (80-100); Monocytes Absolute Auto 800 /uL (0-900); Monocytes Percent Auto 10.6 % (3-14); Neutrophils Absolute Auto 4700 /uL (1500-7000); Neutrophils Percent Auto 60.1 % (50-75); Platelet Count 283 X10^3/uL (150-400); Red Blood Cell Count 4.78 X10^6/uL (4.5-5.9); Red Cell Distribution Width 13.1 % (11.6-14.8); White Blood Cell Count 7.8 X10^3/uL (4.5-11.0)
[2024-05-21 13:07] LABS: Alanine Aminotransferase 34 IU/L (<50); Albumin 4.4 g/dL (3.5-5.0); Albumin Globulin Ratio 1.8 (1.0-2.8); Alkaline Phosphatase 83 U/L (38-126); Aspartate Aminotransferase 29 IU/L (17-59); BUN Creatinine Ratio 9.5 (6-22); Bilirubin Total 0.8 mg/dL (0.2-1.3); Blood Urea Nitrogen 9 mg/dL (9-20); Calcium 9.2 mg/dL (8.4-10.2); Carbon Dioxide 27 mmol/L (22-32); Chloride 102 mmol/L (98-107); Cholesterol 158 mg/dL (140-199); Estimated Glomerular Filt Rate > 60 mL/min (>60); Globulin 2.5 g/dL (1.7-4.1); Glucose 110 mg/dL (70-100); HDL Cholesterol 44 mg/dL (40-60); HEMOLYSIS < 15 (0-50); LDL Cholesterol Calculated 79 mg/dL (<100); Potassium 4.2 mmol/L (3.4-5.1); Sodium 138 mmol/L (137-145); Total Protein 6.9 g/dL (6.3-8.2); Triglycerides 173 mg/dL (35-150)
[2024-05-22 03:39] LABS: Apolipoprotein B 78 mg/dL (<90)
== END ==
PROVIDERS: PCP Family Medicine; Referring Provider Physician Assistant; Visit Provider Physician Assistant
DX: I10 Essential (primary) hypertension (principal); E78.00 Pure hypercholesterolemia, unspecified; K62.5 Hemorrhage of anus and rectum
CPT/HCPCS: 36415; 80053; 80061; 82172; 85025

== ENCOUNTER 2024-05-29 13:46 | Day surgery (SDC) | payer OTHER, SELFPAY ==
[2021-10-18 11:06] VITALS: BMI 38.7
[2024-05-29 14:14] VITALS: BP 161/81; PULSE 81; RESP 18; TEMP 36.3; O2SAT 98
[2024-05-29] MEDS: LACTATED RINGERS 1,000 ML 42 ML IV (14:16)
--- NOTE | 2024-05-29 14:44 | PM.HP.IH.1 ---
History of Present Illness History of Present Illness Date Patient Seen: 05/29/24 Time Patient Seen: 14:44 Chief complaint: Colonoscopy Narrative: Maxwell is a 58-year-old man who presents with several weeks of persistent bright red blood per rectum. His last colonoscopy was roughly 10 years ago. No family history of colon cancer. [facility] Medical History (Updated 05/21/24 @ 11:59 by Sybil Rodarte PA-C) Anxiety Chronic back pain (~2018) Chicken pox (~1972) Pancreatitis (~2014) Adrenal hemorrhage Dyslipidemia Hypertension (~2017) Mixed hyperlipidemia (11/09/15) Surgical History Anesthesia History of rotator cuff surgery (~2020) Status post cholecystectomy (~2014) Family History Father Age: 81 Heart disease Grandmother Stroke Brother Heart disease Hypertension Hyperlipidemia Social History household members: spouse Smoking Status: Never smoker alcohol intake: never substance use type: does not use Meds Home Medications and Allergies Home Medications Medication Instructions Recorded Confirmed Type disabled parking permit #1 ea 12/16/19 05/21/24 Rx rosuvastatin 10 mg tablet 10 mg PO DAILY #90 tabs 08/03/23 05/21/24 Rx amlodipine 5 mg tablet 5 mg PO DAILY #90 tabs 08/15/23 05/21/24 Rx sertraline 100 mg tablet 100 mg PO DAILY 05/21/24 05/21/24 History sodium,potassium,mag sulfates 17.5 See Rx Instructions PO .COMPLEX 05/27/24 Rx gram-3.13 gram-1.6 gram oral soln #354 mL (Suprep Bowel Prep Kit) Allergies Allergy/AdvReac Type Severity Reaction Status Date / Time No Known Drug Allergies Allergy Verified 05/21/24 11:43 Exam Vital Signs (past 8 hours): - 05/29/24 14:14 Temperature 97.4 F L Pulse Rate 81 Respiratory Rate 18 Blood Pressure 161/81 H Pulse Oximetry 98 Oxygen Delivery Method Room Air Oxygen Delivery Method Room Air Const General: No acute distress Resp Effort & Inspection: normal respiratory effort Assessment & Plan Assessment and plan (1) Rectal bleeding: Status: Acute Plan Colonoscopy Time-Based Coding :: [TOTAL MINUTES] spent with patient and on the chart (including review of chart, obtaining history, exam, reviewing outside data, placing orders, documenting exam and treatment plan, and counseling patient) on [DATE]. [employer] Document charge(s): No
--- NOTE | 2024-05-29 15:16 | PM.OP.COLON ---
Operative Date/Time/Diagnoses Date of procedure: 05/29/24 Time of procedure: 15:16 Pre-op diagnosis: Rectal bleeding Post-op diagnosis: same Procedure & Clinicians Study performed: Colonoscopy Same procedure as scheduled: Yes Surgeon: Moisés Montejo Procedure Notes Procedure in detail: Surgeon: Moisés Montejo MD Anesthesia: Ghada Leslie CRNA Procedure: The patient was brought to the endoscopy suite, placed in left lateral decubitus position. The patient was connected to monitoring devices. A time-out was performed. Sedation was administered. Once the patient was adequately sedated, a digital rectal exam was performed and was normal. The scope was then inserted and advanced to the cecum where the appendiceal orifice was identified and photographed. The scope was then slowly withdrawn over greater than 6 minutes. The mucosa was thoroughly inspected. No abnormalities were found. The scope was retroflexed in the rectum. Mild internal hemorrhoids were noted. The scope was straightened and removed. The patient was awakened and brought to recovery. Scope withdrawal time: 9 minutes Sedation time: 15 minutes EBL: 0 Findings: Mild internal hemorrhoids Post-procedure Recommendations: Colonoscopy in 10 years Disposition: PACU
[2024-05-29 15:19] VITALS: BP 117/84; PULSE 71; RESP 13; TEMP 36.2; O2SAT 95
[2024-05-29 15:24] VITALS: BP 109/75; PULSE 81; RESP 15; O2SAT 97
[2024-05-29 15:29] VITALS: BP 142/87; PULSE 77; RESP 17; O2SAT 96
[2024-05-29 15:40] VITALS: BP 120/78; PULSE 73; RESP 12; O2SAT 97
== END 2024-05-29 15:47 | disposition home or self-care (01) ==
PROVIDERS: PCP Family Medicine; Referring Provider Surgery; Visit Provider Surgery
PROC: 0DJD8ZZ Inspection of Lower Intestinal Tract, Via Natural or Artificial Opening Endoscopic (ICD-10-PCS; CPT 45378; principal; 2024-05-29 15:00)
DX: K62.5 Hemorrhage of anus and rectum (principal); K64.8 Other hemorrhoids
CPT/HCPCS: 45378; J2704

== ENCOUNTER → 2024-10-26 12:02 | Outpatient (CLI) | payer OTHER, SELFPAY ==
[2021-10-18 11:06] VITALS: BMI 38.7
== END ==
PROVIDERS: PCP Family Medicine; Visit Provider Nurse Practitioner Family
DX: J02.9 Acute pharyngitis, unspecified (principal)
CPT/HCPCS: 87070; 87077; 87147

== ENCOUNTER → 2024-11-06 16:15 | Outpatient (CLI) | payer OTHER, SELFPAY ==
[2021-10-18 11:06] VITALS: BMI 38.7
--- NOTE | 2024-11-06 16:16 | DI.RAD.S_ITS ---
PROCEDURE: XR LUMBAR SPINE 3V INDICATIONS: chronic low back pain TECHNIQUE: 3 views of the lumbar spine were acquired. COMPARISON: None. FINDINGS: Moderate degenerative changes lower lumbar spine with disc space narrowing and osteophytes, facet osseous hypertrophic changes most notably L4-5 and L5-S1. No radiographic evidence of fracture or subluxation. Degenerative changes bilateral hips partially imaged. IMPRESSION: Degenerative changes. Dictated by: Osmar Phillips M.D. on 11/07/2024 at 13:32 Approved by: Osmar Phillips M.D. on 11/07/2024 at 13:35
== END ==
PROVIDERS: PCP Family Medicine; Referring Provider Family Medicine; Visit Provider Family Medicine
DX: M47.816 Spondylosis without myelopathy or radiculopathy, lumbar region (principal); M47.817 Spondylosis without myelopathy or radiculopathy, lumbosacral region; M54.50 Low back pain, unspecified; I10 Essential (primary) hypertension; E78.5 Hyperlipidemia, unspecified; R42 Dizziness and giddiness; G89.29 Other chronic pain
CPT/HCPCS: 72100